=== PATIENT | female | born 1945 | race Caucasian/White ===

== ENCOUNTER 2016-06-03 15:21 | Outpatient (CLI) | payer MEDICARE ==
[2016-06-03] MEDS ORDERED: IOPAMIDOL-300 50 ML VIAL PO ONE (16:38)
[2016-06-03] MEDS ORDERED: IOPAMIDOL-300 100 ML VIAL IVP ONE (16:38)
== END 2016-06-03 15:22 | disposition home or self-care (01) ==
DX: R10.9 Unspecified abdominal pain (principal); Q61.02 Congenital multiple renal cysts; N28.89 Other specified disorders of kidney and ureter; K57.30 Diverticulosis of large intestine without perforation or abscess without bleeding
CPT/HCPCS: 36415; 74177; 80053; 83690; 85025; Q9967

== ENCOUNTER 2017-03-28 10:36 | Outpatient (CLI) | payer MEDICARE ==
[2017-03-28 13:51] LABS: BASOPHILS % (AUTO) 0.6 %; EOSINOPHILS # (AUTO) 0.5 10^3/uL (0.0-0.7); EOSINOPHILS % (AUTO) 7.5 %; HCT - HEMATOCRIT 43.9 % (37.0-47.0); HGB - HEMOGLOBIN 14.5 g/dL (12.0-16.0); LYMPHOCYTES # (AUTO) 1.9 10^3/uL (1.5-3.5); MEAN CORPUSCULAR HEMOGLOBIN 29.8 pg (27.0-31.0); MEAN CORPUSCULAR VOLUME 90.4 fL (81.0-99.0); MEAN PLATELET VOLUME 9.7 fL (7.9-10.8); MONOCYTES # (AUTO) 0.8 10^3/uL (0.0-1.0); MONOCYTES % (AUTO) 12.6 %; NEUTROPHILS % (AUTO) 48.3 %; RED BLOOD COUNT 4.85 10^6/uL (4.20-5.40); RED CELL DISTRIBUTION WIDTH 13.4 % (12.0-15.0); UNCORRECTED WHITE BLOOD COUNT 6.1 x10^3/uL; WHITE BLOOD COUNT 6.1 x10^3/uL (4.8-10.8)
[2017-03-28 14:16] LABS: HEMOGLOBIN A1C 0.63 g/dL
[2017-03-28 14:23] LABS: ALBUMIN/GLOBULIN RATIO 1.3 (1.0-2.2); BILIRUBIN,TOTAL 0.7 mg/dL (0.2-1.0); BUN - BLOOD UREA NITROGEN 16 mg/dL (6-20); CALCIUM 9.8 mg/dL (8.5-10.3); CARBON DIOXIDE - CO2 30 mmol/L (21-32); CHLORIDE 104 mmol/L (101-111); CHOL/HDL RATIO 2.9 (<4.4); CHOLESTEROL 218 mg/dL; CREATININE 0.8 mg/dL (0.4-1.0); GFR - MDRD 70 (>89); GLUCOSE 100 mg/dL (70-100); HDL CHOLESTEROL 76 mg/dL; LDL/HDL RATIO 1.4 (<4.4); POTASSIUM 4.6 mmol/L (3.5-5.0); SODIUM 140 mmol/L (135-145); TRIGLYCERIDES 186 mg/dL; VLDL CHOLESTEROL 37 mg/dL
== END 2017-03-28 10:37 | disposition home or self-care (01) ==
LOC: LAB.WCP 10:36
PROVIDERS: ATTEND Family Medicine
DX: I10 Essential (primary) hypertension (principal); R73.01 Impaired fasting glucose; E78.5 Hyperlipidemia, unspecified
CPT/HCPCS: 36415; 80053; 80061; 83036; 85025

== ENCOUNTER 2017-06-01 12:54 | Outpatient (CLI) | payer MEDICARE ==
--- NOTE | 2017-06-02 15:25 | Mammography Report ---
DIGITAL SCREENING MAMMOGRAM: 06/01/2017 CLINICAL INDICATION: A 71-year-old with a history of benign right breast biopsy, for screening. COMPARISON: 01/2016, 01/2014, 07/2012, 04/2011, 03/2010. TECHNIQUE: Routine CC and MLO projections were obtained of the breasts. FINDINGS: The breasts demonstrate scattered fibroglandular densities bilaterally. Coarse and punctate, typically benign calcifications are present. No suspicious masses, clustered microcalcifications, or regions of architectural distortion are identified. IMPRESSION: BENIGN FINDINGS. RECOMMENDATION: ROUTINE ANNUAL SCREENING UNLESS OTHERWISE CLINICALLY INDICATED. BIRADS CATEGORY 2-BENIGN FINDINGS. STANDARD QUALIFYING STATEMENTS: 1. This examination was reviewed with the aid of Computer-Aided Detection (CAD). 2. A negative or benign imaging report should not delay biopsy if clinically suspicious findings are present. Consider surgical consultation if warranted. More than 5% of cancers are not identified by imaging. 3. Dense breasts may obscure an underlying neoplasm. TD: 06/02/2017 15:23
== END 2017-06-01 12:55 | disposition home or self-care (01) ==
LOC: DI 12:54
PROVIDERS: ATTEND Family Medicine
DX: Z12.31 Encounter for screening mammogram for malignant neoplasm of breast (principal)
CPT/HCPCS: 77067

== ENCOUNTER 2017-06-20 08:00 | Outpatient (CLI) | payer MEDICARE ==
[2017-06-20 19:04] LABS: EOSINOPHILS # (AUTO) 0.3 10^3/uL (0.0-0.7); EOSINOPHILS % (AUTO) 4.3 %; HGB - HEMOGLOBIN 14.8 g/dL (12.0-16.0); MEAN CORPUSCULAR HEMOGLOBIN 29.3 pg (27.0-31.0); MEAN PLATELET VOLUME 9.7 fL (7.9-10.8); NEUTROPHILS # (AUTO) 2.9 10^3/uL (1.5-6.6); NEUTROPHILS % (AUTO) 44.6 %
[2017-06-20 19:10] LABS: BASOPHILS % (AUTO) 0.8 %; LYMPHOCYTES # (AUTO) 2.3 10^3/uL (1.5-3.5); LYMPHOCYTES % (AUTO) 34.9 %; MEAN CORPUSCULAR HGB CONC 32.6 g/dL (32.0-36.0); MONOCYTES % (AUTO) 15.4 %; PLT - PLATELET COUNT 224 10^3/uL (130-450); RED BLOOD COUNT 5.04 10^6/uL (4.20-5.40); RED CELL DISTRIBUTION WIDTH 13.2 % (12.0-15.0); WHITE BLOOD COUNT 6.5 x10^3/uL (4.8-10.8)
[2017-06-20 19:29] LABS: ALBUMIN 4.2 g/dL (3.2-5.5); ALBUMIN/GLOBULIN RATIO 1.4 (1.0-2.2); BILIRUBIN,TOTAL 0.7 mg/dL (0.2-1.0); CALCIUM 9.7 mg/dL (8.5-10.3); CREATININE 0.7 mg/dL (0.4-1.0); TOTAL PROTEIN 7.3 g/dL (6.7-8.2)
== END 2017-06-20 08:01 | disposition home or self-care (01) ==
LOC: LAB.N 08:00
PROVIDERS: ATTEND Family Medicine
DX: R10.9 Unspecified abdominal pain (principal)
CPT/HCPCS: 36415; 80053; 85025

== ENCOUNTER 2017-06-21 09:52 | Outpatient (CLI) | payer MEDICARE ==
--- NOTE | 2017-06-21 11:35 | XRAY Report ---
THREE VIEW BILATERAL KNEE: 06/21/2017 CLINICAL INDICATION: Osteoarthritis. COMPARISON: 07/17/2013 FINDINGS: AP, lateral, sunrise views of the bilateral knees demonstrate stable mild osteoarthritis. There is no evidence of interval fracture. Fibrous cortical defect in the proximal left tibia is unchanged. No effusion is present. IMPRESSION: STABLE MILD OSTEOARTHRITIS. TD: 06/21/2017 11:34
== END 2017-06-21 09:53 | disposition home or self-care (01) ==
LOC: DI 09:52
PROVIDERS: ATTEND Family Medicine
DX: M17.0 Bilateral primary osteoarthritis of knee (principal)

== ENCOUNTER 2018-06-29 08:00 | Outpatient (CLI) | payer MEDICARE | END 2018-06-29 23:59 | disposition home or self-care (01) | LOC: LAB.WCP 08:00 | PROVIDERS: ATTEND Nurse Practitioner | DX: N39.0 Urinary tract infection, site not specified (principal) | CPT/HCPCS: 87086; 87181 ==

== ENCOUNTER 2018-08-20 10:50 | Outpatient (CLI) | payer MEDICARE | END 2018-08-20 10:51 | disposition home or self-care (01) | LOC: LAB.WCP 10:50 | PROVIDERS: ATTEND Family Medicine | DX: N39.0 Urinary tract infection, site not specified (principal) | CPT/HCPCS: 87086; 87181 ==

== ENCOUNTER 2018-10-08 15:45 | Outpatient (CLI) | payer MEDICARE | END 2018-10-08 23:59 | disposition home or self-care (01) | LOC: LAB.R 15:45 | PROVIDERS: ATTEND Physician Assistant Medical | DX: N39.0 Urinary tract infection, site not specified (principal) | CPT/HCPCS: 87077; 87086; 87181 ==

== ENCOUNTER 2018-10-23 08:00 | Outpatient (CLI) | payer MEDICARE | END 2018-10-23 08:01 | disposition home or self-care (01) | LOC: LAB.WCP 08:00 | PROVIDERS: ATTEND Physician Assistant | DX: N39.0 Urinary tract infection, site not specified (principal) | CPT/HCPCS: 81002 ==

== ENCOUNTER 2018-10-23 14:00 | Outpatient (CLI) | payer MEDICARE | END 2018-10-23 23:59 | disposition home or self-care (01) | LOC: LAB.R 14:00 | PROVIDERS: ATTEND Physician Assistant | DX: N39.0 Urinary tract infection, site not specified (principal) | CPT/HCPCS: 87077; 87086; 87181 ==

== ENCOUNTER 2018-11-15 | Outpatient (CLI) | payer MEDICARE | END 2018-11-15 23:59 | disposition home or self-care (01) | DX: N39.0 Urinary tract infection, site not specified (principal) ==

== ENCOUNTER 2019-03-21 16:21 | Outpatient (CLI) | payer MEDICARE ==
--- NOTE | 2019-03-25 08:50 | DEXA Report ---
Reason: BONE DISORDER Procedure Date: 03/21/2019 Accession Number: [id number] / [id number] Procedure: DEX - Dexa Spine and/or Hip CPT Code: Final Report FULL RESULT: EXAM: Dexa Spine and/or Hip DATE: 03/21/2019 5:03 PM CLINICAL HISTORY: BONE DISORDER TECHNIQUE: Dual energy x-ray absorptiometry (DXA) was performed on a [employer] System. Regions measured are the AP Spine, femoral neck, and if needed forearm. COMPARISON: 02/11/2016. In accordance with the International Society for Clinical Densitometry (ISCD) guidelines, data from previous exams may be reanalyzed using current recommendations and techniques. This is done to allow a more accurate basis for comparison with the current study. FINDINGS: The data for the lumbar spine is as follows: BMD (g/cm/cm) T-SCORE Z-SCORE REGION L1 0.977 -1.3 -0.1 L2 1.255 0.5 1.7 L3 1.366 1.4 2.6 L4 1.508 2.6 3.8 TOTAL 1.295 1.0 2.2 NOTE: All evaluable vertebrae are used for classification The data for the hip is as follows: BMD (g/cm/cm) T-SCORE Z-SCORE REGION Neck 0.780 -1.9 -0.3 TOTAL 0.922 -0.7 0.7 NOTE: The femoral neck or total proximal femur, whichever is lowest, is used for classification. DXA RESULTS SUMMARY: Spine SCAN DATE AGE BMD CHANGE VS CHANGE VS PREVIOUS PREVIOUS % 1/21/2019 [age] 1.295 0.008 0.6 02/11/2016 [age] 1.287 * Denotes significant change at the 95% confidence level. Denotes dissimilar scan types or analysis methods. DXA RESULTS SUMMARY: Hip SCAN DATE AGE BMD CHANGE VS CHANGE VS PREVIOUS PREVIOUS % 1/21/2019 73.4 0.922 -0.031 -3.3 02/11/2016 [age] 0.953 * Denotes significant change at the 95% confidence level. Denotes dissimilar scan types or analysis methods. IMPRESSION: THE WHO CLASSIFICATION BASED ON THE INTERNATIONAL REFERENCE STANDARD IS OSTEOPENIA. THE FRACTURE RISK IS INCREASED. RECOMMENDATION: Patients with diagnosis of osteoporosis or osteopenia should have regular bone mineral density assessment. For those eligible for Medicare, routine testing is allowed once every 2 years. Testing frequency can be increased for patients who have rapidly progressing disease or for those who are receiving medical therapy to restore bone mass. COMMENT: World Health Organization (WHO) definitions for osteoporosis and osteopenia: NORMAL BMD: T-score at -1.0 or higher, fracture risk is low OSTEOPENIA BMD: T-score between -1.0 and -2.5, fracture risk is increased. OSTEOPOROSIS BMD: T-score at -2.5 or lower, fracture risk is high. National Osteoporosis Foundation recommends: 1. Obtain adequate dietary calcium (at least 1200 mg per day) and vitamin D (400-800 international units per day). 2. Participate, as appropriate, in regular weightbearing and muscle-strengthening exercise. 3. Avoid tobacco use and reduce alcohol and caffeine intake. 4. For more detailed information see the website at www.NOF.org.
== END 2019-03-21 16:22 | disposition home or self-care (01) ==
LOC: DI 16:21
PROVIDERS: ATTEND Family Medicine
DX: M85.89 Other specified disorders of bone density and structure, multiple sites (principal)
CPT/HCPCS: 77080

== ENCOUNTER 2019-03-21 16:22 | Outpatient (CLI) | payer MEDICARE ==
--- NOTE | 2019-03-25 10:29 | Mammography Report ---
Reason: ROUTINE MAMMO Procedure Date: 03/21/2019 Accession Number: [id number] / [id number] Procedure: AUBREE - Screening Mammo w/Deonte CPT Code: Final Report FULL RESULT: EXAM: Screening Mammo w/Deonte DATE: 03/21/2019 4:46 PM CLINICAL HISTORY: Screening encounter. TECHNIQUE: (B) - Bilateral CC and MLO views were obtained. COMPARISON: 06/01/2017 through 03/26/2010. PARENCHYMAL PATTERN: (A) - The breast(s) demonstrate(s) scattered fibroglandular densities. FINDINGS: There are coarse typically benign calcifications. There are no suspicious masses, calcifications, or areas of distortion. IMPRESSION: Benign findings. BI-RADS category 2. RECOMMENDATION: (ANNUAL) - Recommend routine annual screening mammography. BI-RADS CATEGORY: (2) - Benign Findings. STANDARD QUALIFYING STATEMENTS: 1. This examination was not reviewed with the aid of Computer-Aided Detection (CAD). 2. A negative or benign imaging report should not preclude biopsy if clinically suspicious findings are present. 3. Dense breasts may obscure an underlying neoplasm. 4. This examination was reviewed with the aid of 3D breast imaging (tomosynthesis).
== END 2019-03-21 16:23 | disposition home or self-care (01) ==
LOC: DI 16:22
DX: Z12.31 Encounter for screening mammogram for malignant neoplasm of breast (principal)
CPT/HCPCS: 77063; 77067

== ENCOUNTER 2020-05-14 13:11 | Outpatient (CLI) | payer MEDICARE ==
--- NOTE | 2020-05-14 16:41 | DEXA Report ---
PROCEDURE: Dexa Spine and/or Hip INDICATIONS: OSTEOPENIA TECHNIQUE: Dual energy x-ray absorptiometry (DXA) was performed on a [employer]ok[employer] System. Regions measur ed are the AP Spine, femoral neck, and if needed forearm. COMPARISON: 03/21/2019 FINDINGS: Lumbar Spine: Bone Mineral Density 1.329 g/cm/cm,T score 1.2, normal bone density Left Femoral Neck: Bone Mineral Density 0.917 g/cm/cm, T score -0.7, normal bone density (T score greater or equal to -1.0: NORMAL) (T score from -1.1 to -2.4: OSTEOPENIA) (T score less than or equal to -2.5 to: OSTEOPOROSIS) Impression: Normal bone mineral density. Patients with diagnosis of osteoporosis or osteopenia should have regular bone mineral density assess ment. For those eligible for Medicare, routine testing is allowed once every 2 years. Testing frequ ency can be increased for patients who have rapidly progressing disease or for those who are receivin g medical therapy to restore bone mass. Reviewed by: Sidney Duran MD on 05/14/2020 4:40 PM PST Approved by: Sidney Duran MD on 05/14/2020 4:40 PM PST Station ID: [id number]
== END 2020-05-14 13:12 | disposition home or self-care (01) ==
LOC: DI 13:11
PROVIDERS: ATTEND Family Medicine
DX: M85.80 Other specified disorders of bone density and structure, unspecified site (principal)

== ENCOUNTER 2020-09-21 08:54 | Outpatient (CLI) | payer MEDICARE ==
[2020-09-21 09:22] LABS: BASOPHILS % (AUTO) 0.9 %; EOSINOPHILS # (AUTO) 0.2 10^3/uL (0.0-0.7); EOSINOPHILS % (AUTO) 4.1 %; HCT - HEMATOCRIT 41.2 % (37.0-47.0); HGB - HEMOGLOBIN 13.4 g/dL (12.0-16.0); LYMPHOCYTES # (AUTO) 1.7 10^3/uL (1.5-3.5); MEAN CORPUSCULAR HEMOGLOBIN 32.1 pg (27.0-31.0); MEAN CORPUSCULAR HGB CONC 32.5 g/dL (32.0-36.0); MEAN CORPUSCULAR VOLUME 98.8 fL (81.0-99.0); MEAN PLATELET VOLUME 10.3 fL (7.9-10.8); MONOCYTES # (AUTO) 0.5 10^3/uL (0.0-1.0); MONOCYTES % (AUTO) 11.1 %; NEUTROPHILS % (AUTO) 45.4 %; PLT - PLATELET COUNT 194 10^3/uL (130-450); RED BLOOD COUNT 4.17 10^6/uL (4.20-5.40); RED CELL DISTRIBUTION WIDTH 13.1 % (12.0-15.0); WHITE BLOOD COUNT 4.4 x10^3/uL (4.8-10.8)
[2020-09-21 09:51] LABS: ALBUMIN 4.2 g/dL (3.2-5.5); ALBUMIN/GLOBULIN RATIO 1.4 (1.0-2.2); ALKALINE PHOSPHATASE 65 IU/L (42-121); ALT ALANINE AMINOTRANSFERASE 21 IU/L (10-60); AST ASPARTATE AMINOTRANSFERASE 23 IU/L (10-42); BILIRUBIN,TOTAL 0.4 mg/dL (0.2-1.0); BUN - BLOOD UREA NITROGEN 14 mg/dL (6-20); CALCIUM 9.3 mg/dL (8.5-10.3); CARBON DIOXIDE - CO2 30 mmol/L (21-32); CHLORIDE 101 mmol/L (101-111); CHOL/HDL RATIO 4.7 (<4.4); CHOLESTEROL 222 mg/dL; CREATININE 0.7 mg/dL (0.4-1.0); GFR - MDRD 81 (>89); GLUCOSE 103 mg/dL (70-100); HDL CHOLESTEROL 47 mg/dL; LDL CHOLESTEROL,CALCULATED 109 mg/dL; LDL/HDL RATIO 2.3 (<4.4); POTASSIUM 4.4 mmol/L (3.5-5.0); SODIUM 140 mmol/L (135-145); TOTAL PROTEIN 7.2 g/dL (6.7-8.2); TRIGLYCERIDES 330 mg/dL; VLDL CHOLESTEROL 66 mg/dL
[2020-09-21 10:01] LABS: THYROID STIMULATING HORMONE 1.65 uIU/mL (0.34-5.60)
[2020-09-21 13:28] LABS: ESTIMATED AVERAGE GLUCOSE 108 mg/dL (70-100); HEMOGLOBIN A1c% 5.4 % (4.27-6.07)
== END 2020-09-21 08:55 | disposition home or self-care (01) ==
LOC: LAB 08:54
PROVIDERS: ATTEND Family Medicine
DX: R73.01 Impaired fasting glucose (principal); E78.5 Hyperlipidemia, unspecified; I10 Essential (primary) hypertension
CPT/HCPCS: 36415; 80053; 80061; 83036; 83721; 84443; 85025

== ENCOUNTER 2021-03-08 13:01 | Outpatient (CLI) | payer MEDICARE ==
--- NOTE | 2021-03-09 14:08 | Mammography Report ---
BILATERAL DIGITAL SCREENING MAMMOGRAM 3D/2D: 03/08/2021 CLINICAL: Routine screening. Comparison is made to exams dated: 03/21/2019 mammogram, 06/01/2017 mammogram, 02/11/2016 mammogram, 1 mammogram, 07/23/2012 mammogram, and 04/26/2011 mammogram - [facility]. The tissue of both breasts is predominantly fatty. No significant masses, calcifications, or other findings are seen in either breast. There has been no significant interval change. IMPRESSION: NEGATIVE There is no mammographic evidence of malignancy. A 1 year screening mammogram is recommended. This exam was interpreted at Station ID: [id number]. NOTE: For mammograms, a report in lay terms will be sent to the patient. Approximately 15% of breast malignancies will not be visualized mammographically. In the management of a palpable breast mass, a negative mammogram must not discourage biopsy of a clinically suspicious lesion. Electronically Signed By: Chao Luther M.D., jr/dixie:03/08/2021 14:00:33 ACR BI-RADS Category 1: Negative 3341F PARENCHYMAL PATTERN: (F) - The breast(s) demonstrate(s) diffuse fatty replacement. BI-RADS CATEGORY: (1) - 1 RECOMMENDATION: (ANNUAL) - Recommend routine annual screening mammography. [id number] 1 year screening LATERALITY: (B)
== END 2021-03-08 13:02 | disposition home or self-care (01) ==
LOC: DI 13:01
DX: Z12.31 Encounter for screening mammogram for malignant neoplasm of breast (principal)

== ENCOUNTER 2022-03-14 12:56 | Outpatient (CLI) | payer MEDICARE ==
--- NOTE | 2022-03-15 11:54 | Mammography Report ---
BILATERAL DIGITAL SCREENING MAMMOGRAM 3D/2D: 03/14/2022 CLINICAL: Routine screening. Comparison is made to exams dated: 03/08/2021 mammogram, 03/21/2019 mammogram, 06/01/2017 mammogram, 1 mammogram, 01/28/2014 mammogram, and 07/23/2012 mammogram - [facility]. There are scattered areas of fibroglandular density in both breasts (category b / 25%-50% glandular t issue). No significant masses, calcifications, or other findings are seen in either breast. There has been no significant interval change. IMPRESSION: NEGATIVE There is no mammographic evidence of malignancy. A 1 year screening mammogram is recommended. Based on the Tyrer Cuzick model (a risk assessment model) the patients lifetime risk is 2.8% and her 10 year risk is 0.0%. According to the ACR, ACS, and NCCN guidelines, an annual breast MRI exam ramirez g with mammogram is recommended if the patients lifetime risk is 20% or greater. This exam was interpreted at Station ID: [id number]. NOTE: For mammograms, a report in lay terms will be sent to the patient. Approximately 15% of breast malignancies will not be visualized mammographically. In the management of a palpable breast mass, a negative mammogram must not discourage biopsy of a clinically suspicious lesion. Electronically Signed By: Chao Luther M.D., jr/dixie:03/14/2022 16:47:32 ACR BI-RADS Category 1: Negative 3341F PARENCHYMAL PATTERN: (A) - The breast(s) demonstrate(s) scattered fibroglandular densities. BI-RADS CATEGORY: (1) - 1 RECOMMENDATION: (ANNUAL) - Recommend routine annual screening mammography. [id number] 1 year screening LATERALITY: (B)
== END 2022-03-14 12:57 | disposition home or self-care (01) ==
LOC: DI 12:56
PROVIDERS: ATTEND Nurse Practitioner Family
DX: Z12.31 Encounter for screening mammogram for malignant neoplasm of breast (principal)

== ENCOUNTER 2022-11-23 07:20 | Outpatient (CLI) | payer MEDICARE ==
[2022-11-23 07:53] LABS: ALBUMIN 4.1 g/dL (3.2-5.5); ALBUMIN/GLOBULIN RATIO 1.5 (1.0-2.2); ALKALINE PHOSPHATASE 72 IU/L (42-121); ALT ALANINE AMINOTRANSFERASE 21 IU/L (10-60); AST ASPARTATE AMINOTRANSFERASE 24 IU/L (10-42); BILIRUBIN,TOTAL 0.5 mg/dL (0.2-1.0); BUN - BLOOD UREA NITROGEN 24 mg/dL (6-20); CALCIUM 9.6 mg/dL (8.5-10.3); CARBON DIOXIDE - CO2 32 mmol/L (21-32); CHLORIDE 104 mmol/L (101-111); CHOL/HDL RATIO 3.6 (<4.4); CHOLESTEROL 208 mg/dL; CREATININE 0.7 mg/dL (0.6-1.3); GFR - MDRD 81 (>89); GLUCOSE 106 mg/dL (74-104); HDL CHOLESTEROL 57 mg/dL; LDL CHOLESTEROL,CALCULATED 106 mg/dL; LDL/HDL RATIO 1.9 (<4.4); POTASSIUM 3.9 mmol/L (3.5-4.5); SODIUM 139 mmol/L (135-145); TOTAL PROTEIN 6.9 g/dL (6.4-8.9); TRIGLYCERIDES 223 mg/dL (48-352); VLDL CHOLESTEROL 45 mg/dL
[2022-11-23 07:55] LABS: BASOPHILS # (AUTO) 0.1 10^3/uL (0.0-0.1); EOSINOPHILS # (AUTO) 0.3 10^3/uL (0.0-0.7); EOSINOPHILS % (AUTO) 4.9 %; HCT - HEMATOCRIT 42.7 % (37.0-47.0); LYMPHOCYTES # (AUTO) 2.1 10^3/uL (1.5-3.5); LYMPHOCYTES % (AUTO) 40.6 %; MEAN CORPUSCULAR HEMOGLOBIN 31.7 pg (27.0-31.0); MEAN CORPUSCULAR HGB CONC 32.8 g/dL (32.0-36.0); MEAN CORPUSCULAR VOLUME 96.6 fL (81.0-99.0); MEAN PLATELET VOLUME 10.3 fL (7.9-10.8); MONOCYTES # (AUTO) 0.4 10^3/uL (0.0-1.0); MONOCYTES % (AUTO) 8.7 %; NEUTROPHILS # (AUTO) 2.2 10^3/uL (1.5-6.6); NEUTROPHILS % (AUTO) 43.6 %; PLT - PLATELET COUNT 215 10^3/uL (130-450); RED BLOOD COUNT 4.42 10^6/uL (4.20-5.40); RED CELL DISTRIBUTION WIDTH 13.4 % (12.0-15.0); WHITE BLOOD COUNT 5.1 x10^3/uL (4.8-10.8)
[2022-11-23 10:58] LABS: ESTIMATED AVERAGE GLUCOSE 114 mg/dL (70-100); HEMOGLOBIN A1c% 5.6 % (4.27-6.07)
== END 2022-11-23 07:21 | disposition home or self-care (01) ==
LOC: LAB 07:20
PROVIDERS: ATTEND Nurse Practitioner Family
DX: I10 Essential (primary) hypertension (principal); E78.5 Hyperlipidemia, unspecified
CPT/HCPCS: 36415; 80053; 80061; 83036; 83721; 84443; 85025

== ENCOUNTER 2023-01-16 10:10 | Outpatient (CLI) | payer MEDICARE ==
[2023-01-16 10:55] LABS: BILIRUBIN,URINE NEGATIVE (NEGATIVE); GLUCOSE, URINE (UA) NEGATIVE (NEGATIVE); KETONES,URINE (UA) NEGATIVE (NEGATIVE); LEUKOCYTE ESTERASE, URINE TRACE (NEGATIVE); NITRITE,URINE POSITIVE (NEGATIVE); OCCULT BLOOD,URINE NEGATIVE (NEGATIVE); PROTEIN,URINE NEGATIVE (NEGATIVE); UROBILINOGEN,URINE 0.2 (NORMAL) E.U./dL (NORMAL)
[2023-01-16 11:04] LABS: CLARITY,URINE HAZY (CLEAR)
[2023-01-16 11:09] LABS: BACTERIA,URINE Moderate /HPF (None Seen); RBC,URINE 0-5 /HPF (0-5); SQUAMOUS EPITHELIAL CELL,UR MOD Squamous (<= Few)
== END 2023-01-16 10:11 | disposition home or self-care (01) ==
LOC: RT 10:10
PROVIDERS: ATTEND Orthopaedic Surgery
DX: Z01.818 Encounter for other preprocedural examination (principal); N39.0 Urinary tract infection, site not specified
CPT/HCPCS: 81001; 87086; 93005

== ENCOUNTER 2023-04-19 13:03 | Outpatient (CLI) | payer MEDICARE ==
--- NOTE | 2023-04-19 16:46 | Mammography Report ---
BILATERAL DIGITAL SCREENING MAMMOGRAM 3D/2D: 04/19/2023 CLINICAL: Routine screening. Comparison is made to exams dated: 03/14/2022 mammogram, 03/08/2021 mammogram, 03/21/2019 mammogram, 06/01/2017 mammogram, 02/11/2016 mammogram, and 01/28/2014 mammogram - [facility]. There are scattered areas of fibroglandular density in both breasts (category b / 25%-50% glandular t issue). There is a focal asymmetry in the left breast at 1 o'clock middle depth. No other significant masses, calcifications, or other findings are seen in either breast. IMPRESSION: INCOMPLETE: NEEDS ADDITIONAL IMAGING EVALUATION The focal asymmetry in the left breast is indeterminate. Additional views with possible ultrasound a re recommended. Based on the Tyrer Cuzick model (a risk assessment model) the patients lifetime risk is 2.4% and her 10 year risk is 0.0%. According to the ACR, ACS, and NCCN guidelines, an annual breast MRI exam ramirez g with mammogram is recommended if the patients lifetime risk is 20% or greater. This exam was interpreted at Station ID: [id number]. NOTE: For mammograms, a report in lay terms will be sent to the patient. Approximately 15% of breast malignancies will not be visualized mammographically. In the management of a palpable breast mass, a negative mammogram must not discourage biopsy of a clinically suspicious lesion. Electronically Signed By: Trina Beltrán M.D. lk/:04/19/2023 14:11:49 ACR BI-RADS Category 0: Incomplete 3340F PARENCHYMAL PATTERN: (A) - The breast(s) demonstrate(s) scattered fibroglandular densities. BI-RADS CATEGORY: (0) - 0 Mammo and [place] [id number] Immediate follow-up LATERALITY: (B)
== END 2023-04-19 13:04 | disposition home or self-care (01) ==
LOC: DI 13:03
DX: Z12.31 Encounter for screening mammogram for malignant neoplasm of breast (principal); R92.323 Mammographic fibroglandular density, bilateral breasts; R92.8 Other abnormal and inconclusive findings on diagnostic imaging of breast

== ENCOUNTER 2023-05-16 12:26 | Outpatient (CLI) | payer MEDICARE ==
--- NOTE | 2023-05-17 14:50 | Mammography Report ---
UNILATERAL LEFT DIGITAL DIAGNOSTIC MAMMOGRAM 3D/2D WITH SPOT COMPRESSION: 05/16/2023 CLINICAL: Patient returns today to evaluate a focal asymmetry in the left breast. Comparison is made to exams dated: 04/19/2023 mammogram, 03/14/2022 mammogram, 03/08/2021 mammogram, 1 05/22/2018 mammogram, 06/01/2017 mammogram, and 02/11/2016 mammogram - [facility]. There are scattered areas of fibroglandular density in the left breast (category b / 25%-50% glandula r tissue). The focal asymmetry seen on recent screening mammogram did not persist with additional imaging and is consistent with superimposition of normal breast tissue. No significant masses, calcifications, or other findings are seen in the breast. IMPRESSION: NEGATIVE Superimposition of normal breast tissue. No mammographic evidence of malignancy. A 1 year screening m ammogram is recommended. Findings and recommendations were conveyed to the patient during today's evaluation. Based on the Tyrer Cuzick model (a risk assessment model) the patient's lifetime risk is 2.4% and her 10 year risk is 0.0%. According to the ACR, ACS, and NCCN guidelines, an annual breast MRI exam ramirez g with mammogram is recommended if the patients lifetime risk is 20% or greater. This exam was interpreted at Station ID: [id number]. NOTE: For mammograms, a report in lay terms will be sent to the patient. Approximately 15% of breast malignancies will not be visualized mammographically. In the management of a palpable breast mass, a negative mammogram must not discourage biopsy of a clinically suspicious lesion. Electronically Signed By: Rachele Billy M.D., PH.D eb/:05/16/2023 13:06:36 ACR BI-RADS Category 1: Negative 3341F PARENCHYMAL PATTERN: (A) - The breast(s) demonstrate(s) scattered fibroglandular densities. BI-RADS CATEGORY: (1) - 1 Mammogram [id number] 1 year screening LATERALITY: (B)
== END 2023-05-16 12:27 | disposition home or self-care (01) ==
LOC: DI 12:26
PROVIDERS: ATTEND Nurse Practitioner Family
DX: R92.322 Mammographic fibroglandular density, left breast (principal)

== ENCOUNTER 2023-11-24 10:55 | Emergency (ER) | payer MEDICARE ==
--- NOTE | 2023-11-24 11:24 | ED Physician Documentation ---
History of Present Illness - Stated complaint Stated Complaint: GLF,HEAD INJ - Chief complaint Chief Complaint: General - History of Present Illness Timing: Prior to arrival - Additonal information Additional information: Patient is an 78-year-old female presenting to the emergency department with ground-level fall. Injury occurred about 45 minutes prior to arrival. Patient states she was walking outside when she tripped on a cement block falling on her head. She notes she tried to cut herself and did injure her right fourth finger and left knee. She denies any loss of consciousness she was able to get up by herself and go back into the house. She notes feeling lightheaded but did not lose consciousness. She notes no neck pain or back pain. No nausea or vomiting after the incident. She took Tylenol this morning for pain control prior to going outside. She denies any presyncopal symptoms prior to the fall and notes it was a mechanical fall tripping over the cement block. Patient is not on any blood thinners. PD PAST MEDICAL HISTORY - Past Medical History Cardiovascular: Hypertension, High cholesterol Respiratory: None Endocrine/Autoimmune: None GI: Hemorrhoids : Nocturia HEENT: None, Chronic vision loss Psych: Claustrophobia Musculoskeletal: None Derm: None - Past Surgical History Past Surgical History: Yes General: Cholecystectomy, Appendectomy, Other /[employer]CH[employer]ICIAN: Hysterectomy, Other - Present Medications Home Medications: Ambulatory Orders Medication Instructions Recorded Confirmed Calcium Carb, Citrate/Vit D3 1 tab PO BID 12/29/14 12/29/14 [Calcium + D3 ER Tablet] Cholecalciferol (Vitamin D3) [D3 1 tab PO BID 12/29/14 12/29/14 Dots] Multivitamin [Multivitamins] 1 each PO DAILY 12/29/14 12/29/14 Naproxen Sodium [Aleve] 220 mg PO BID 12/29/14 12/29/14 Simvastatin 20 mg PO DAILY 12/29/14 12/29/14 diphenhydrAMINE HCl [Benadryl] 50 mg PO DAILY 12/29/14 12/29/14 hydroCHLOROthiazide 25 mg PO DAILY 12/29/14 12/29/14 [Hydrochlorothiazide] - Allergies Allergies/Adverse Reactions: Allergies Allergy/AdvReac Type Severity Reaction Status Date / Time Penicillins Allergy Hives Verified 11/24/23 11:12 - Social History Does the pt smoke?: No Smoking Status: Never smoker Does the pt drink ETOH?: Yes ETOH Use: Wine Does the pt have substance abuse?: Yes Substance Use and Type: CBD oil / Products - Immunizations Immunizations are current?: Yes - POLST Patient has POLST: No PD ED PE NORMAL - General General: Alert and oriented X 3 - HEENT HEENT: Other (Large hematoma noted to left mormonism with abrasion to left mormonism with minimal active bleeding no large laceration small abrasion over hematoma of left mormonism.) - Cardiac Cardiac: RRR, No murmur, No gallop, No rub - Respiratory Respiratory: No respiratory distress, Clear bilaterally - Abdomen Abdomen: Normal bowel sounds, Non tender - Back Back: No spinal TTP (No thoracic lumbar or sacral spinous process tenderness.) - Derm Derm: Normal color, Warm and dry - Extremities Extremities: No deformity (Right ring finger does show bruising along phalanx proximal middle and distal. Full range of motion intact no obvious deformity.), Normal ROM s pain - Free text exam Free text exam: Right knee shows old surgical scar no significant bruising joint effusion or laxity appreciated. No appreciable deformity or bruising full range of motion intact with strength intact compared to left leg. Sensation intact distally and pulses 2+ bilaterally. Results - Vitals Vitals: Vital Signs - 24 hr 11/24/23 11/24/23 11:08 13:18 Temperature 36.6 C Heart Rate 52 L Respiratory 20 Rate Blood Pressure 179/73 H 156/72 H O2 Saturation 100 Oxygen O2 Source Room air - Rads (name of study) CT head Relevant Findings:: EMP independent interpretation of test (Large left-sided hematoma no intracranial bleed appreciated.) x-ray right knee Relevant Findings:: EMP independent interpretation of test (No acute fracture) x-ray right ring finger Relevant Findings:: EMP independent interpretation of test (No appreciable fr acture) PD Medical Decision Making - ED course Complexity details: reviewed old records, reviewed results ED course: Patient is an 78-year-old female presenting to the emergency department after ground-level fall about 45 minutes prior to arrival. Patient's tripped over a cement block and sustained large hematoma to her left side of her head. She denies losing consciousness or being on blood thinners. She also sustained injury to her right finger and left knee. Patient took Tylenol prior to coming to emergency department. Vitals do show mild bradycardia but this is consistent with previous visits by patient and is baseline for her. Patient physical exam does show bruising to right fourth ring finger and left knee swelling and pain. CT scan of the head shows hematoma but no appreciable intracranial bleeding x- ray of finger shows mild swelling but no significant fracture. Additionally x-ray of knee does show possible lucency but no acute fracture or hardware loosening. Discussed with patient she is able to bear weight on knee and able to ambulate on knee. Discussed with patient findings are reassuring here in emergency department. Patient was given ibuprofen and pain has significantly improved. Patient's vitals are monitored here in the emergency department no acute changes. Patient feels safe to go home instructed patient given lucency seen on x-ray instructed her to keep leg elevated ice and remain off of it until pain resolves. If pain persists or worsens follow-up with PCP in outpatient setting. Departure - Departure Disposition: 01 Home, Self Care Clinical Impression: Hematoma and contusion, Accident due to mechanical fall without injury, Right knee pain Condition: Good Instructions: ED Hematoma Comments: You were seen here in the emergency department your workup here showed hematoma to the head your CT showed no signs of fracture or bleeding. Your knee x-ray does show possible lucency I have given you crutches and an Jeff wrap use ibuprofen and Tylenol for pain control and keep leg elevated. If pain worsens return for reevaluation if pain is improving you may begin to ambulate on left knee. Forms: PCP List
--- NOTE | 2023-11-24 12:08 | CT Report ---
PROCEDURE: Head WO INDICATIONS: fall with large hematoma TECHNIQUE: Noncontrast 4.5 mm thick angled axial sections acquired from the foramen magnum to the vertex. For r adiation dose reduction, the following was used: automated exposure control, adjustment of mA and/or kV according to patient size. COMPARISON: None. FINDINGS: Image quality: Excellent. CSF spaces: Basal cisterns are patent. No extra-axial fluid collections. Ventricles are normal in size and shape. Brain: No midline shift. No intracranial masses or hemorrhage. Sidhu-white matter interface is norm al. Skull and face: Large left frontal scalp hematoma without underlying fracture. Calvarium and visuali zed facial bones are intact, without suspicious lesions. Sinuses: Visualized sinuses and mastoids are clear. IMPRESSION: No acute intracranial pathology. Large left frontal scalp hematoma without underlying fracture. Reviewed by: Marcelo Zarate MD on 11/24/2023 12:07 PM PDT Approved by: Marcelo Zarate MD on 11/24/2023 12:07 PM PDT Station ID: [id number]
[2023-11-24] MEDS: IBUPROFEN 800 MG TABLET PO STA (12:46)
--- NOTE | 2023-11-24 13:46 | XRAY Report ---
PROCEDURE: Knee 4+V LT INDICATIONS: left knee pain TECHNIQUE: 4 views of the knee(s) were acquired. COMPARISON: 06/21/2017 FINDINGS: Bones: Left knee arthroplasty. There are small periarticular and intra-articular ossifications. Lozada lar resurfacing changes. There is no acute displaced fracture. There is trace lucency adjacent to the femoral and tibial components. Soft tissues: No suspicious calcifications. Possible soft tissue swelling is present. IMPRESSION: Left knee arthroplasty in expected position. No acute displaced fracture or dislocation. Small periar ticular and intra-articular ossifications. Trace lucency is adjacent to the femoral and tibial hardware components, no postoperative priors are available for review. If there is high concern for occult injury, consider repeat radiography or cross-sectional imaging. Reviewed by: Matthew Maza MD on 11/24/2023 1:45 PM PDT Approved by: Matthew Maza MD on 11/24/2023 1:45 PM PDT Station ID: [id number]
--- NOTE | 2023-11-24 13:48 | XRAY Report ---
PROCEDURE: Finger(s) RT INDICATIONS: right ring finger swelling TECHNIQUE: AP hand, 2 views of the fourth finger(s) acquired. COMPARISON: None. FINDINGS: Bones: Monitoring device is seen at the third ray. Mild background degenerative changes particularly at the base of the thumb. There is no acute displaced fracture or dislocation. Soft tissues: No suspicious calcifications. Possible soft tissue swelling at the fourth ray. IMPRESSION: No acute osseous abnormality. Suspected fourth ray soft tissue swelling. If there is high concern for further derangement, consider MRI evaluation. Reviewed by: Matthew Maza MD on 11/24/2023 1:47 PM PDT Approved by: Matthew Maza MD on 11/24/2023 1:47 PM PDT Station ID: [id number]
[2023-11-24 15:07] VITALS: BP 110/70; O2SAT 99
== END 2023-11-24 15:04 | disposition home or self-care (01) ==
LOC: ED 10:55
DX: S00.93XA Contusion of unspecified part of head, initial encounter (principal); M25.561 Pain in right knee; W01.0XXA Fall on same level from slipping, tripping and stumbling without subsequent striking against object, initial encounter; Y93.01 Activity, walking, marching and hiking; I10 Essential (primary) hypertension; E78.00 Pure hypercholesterolemia, unspecified; Z79.899 Other long term (current) drug therapy
CPT/HCPCS: 70450; 73140; 73564; 99283; 99284; A9270

== ENCOUNTER 2023-12-02 08:23 | Outpatient (CLI) | payer MEDICARE ==
[2023-12-02 08:59] LABS: ALBUMIN 4.3 g/dL (3.2-5.5); ALBUMIN/GLOBULIN RATIO 1.7 (1.0-2.2); ALKALINE PHOSPHATASE 61 IU/L (42-121); ALT ALANINE AMINOTRANSFERASE 16 IU/L (10-60); AST ASPARTATE AMINOTRANSFERASE 21 IU/L (10-42); BILIRUBIN,TOTAL 0.6 mg/dL (0.2-1.0); BUN - BLOOD UREA NITROGEN 18 mg/dL (6-20); CALCIUM 9.7 mg/dL (8.5-10.3); CARBON DIOXIDE - CO2 33 mmol/L (21-32); CHLORIDE 101 mmol/L (101-111); CHOL/HDL RATIO 2.6 (<4.4); CHOLESTEROL 187 mg/dL; CREATININE 0.6 mg/dL (0.6-1.3); GFR - MDRD 96 (>89); GLUCOSE 101 mg/dL (74-104); HDL CHOLESTEROL 71 mg/dL; LDL CHOLESTEROL,CALCULATED 73 mg/dL; POTASSIUM 4.1 mmol/L (3.5-4.5); SODIUM 139 mmol/L (135-145); TOTAL PROTEIN 6.9 g/dL (6.4-8.9); TRIGLYCERIDES 215 mg/dL; VLDL CHOLESTEROL 43 mg/dL
[2023-12-02 09:11] LABS: THYROID STIMULATING HORMONE 1.92 uIU/mL (0.34-5.60)
== END 2023-12-02 08:24 | disposition home or self-care (01) ==
LOC: LAB 08:23
PROVIDERS: ATTEND Nurse Practitioner Family
DX: I10 Essential (primary) hypertension (principal); E78.5 Hyperlipidemia, unspecified
CPT/HCPCS: 36415; 80053; 80061; 83721; 84443